=== PATIENT | female | born 1940 | race Caucasian/White ===

== ENCOUNTER 2024-01-13 09:48 | Emergency (ER) | payer OTHER, SELFPAY ==
[2024-01-13 10:01] VITALS: BP 138/72
--- NOTE | 2024-01-13 11:16 | ED.GENMED ---
History of Present Illness
<Cecelia Schaefer PA-C - Last Filed: 01/13/24 15:26>
General
Chief Complaint: Skin Problem
Source: patient and records
Exam Limitations: none
Time Seen by Provider: 01/13/24 11:02
Nursing documentation reviewed up to this point in time: agreed with
Travel History
Have you had any contact with someone who has COVID-19?: No
Do you have any symptoms of coronavirus? Fever > 100 degrees, chills, cough, shortness of breath, sore throat, loss of taste or smell, muscle aches, or headache?: No
History of Present Illness
History of Present Illness:
83-year-old female with a past medical history of CHF, COPD, A-fib on warfarin, CAD presenting to the emergency department today with concerns of swelling, pain, and warmth in her right leg. Patient states that she started to have problems with
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 Patient states that over the past few years it
started to get red on the right, and over the past few days, it became warm and painful. Patient is not a diabetic. Patient denies any fevers or chills. Patient denies any nausea vomiting, abdominal pain, chest pain. Patient was seen by her
primary care provider who sent her to the emergency department to rule out blood clot in her leg.
Past History
<Cecelia Schaefer PA-C - Last Filed: 01/13/24 15:26>
Past History
ED Past Medical History: CAD, Cancer (Breast cancer, left ), CHF, HTN, Hypercholesterolemia, Valvular disease (Aortic stenosis ) and Psychiatric
ED Past Surgical History: Cholecystectomy and Other (Lumpectomy left breast with adjuvent XRT, patient has also had a CABG with aortic replacement)
Social History
Tobacco: Former smoker
Alcohol: None
Personal:
Living: with family
Employment: Retired
Family History
Family History: Other (nonsig)
Review of Systems
<Cecelia Schaefer PA-C - Last Filed: 01/13/24 15:26>
Review of Systems
All Other Systems: ROS reviewed and negative except as documented in HPI and ROS
Phy Exam
<Cecelia Schaefer PA-C - Last Filed: 01/13/24 15:26>
Physical Exam
Physical Exam:
General: Patient is well appearing and in no acute distress; non-toxic
Skin: There is circumferential redness and brawny discoloration on the right calf. Right calf is hot to the touch.
Head: Normocephalic, atraumatic
Eyes: Sclera non-icteric. EOMs intact.
Cardiac: Regular rate
Peripheral Vascular: Bilateral lower extremity pitting edema. See skin exam above, right sided circumferential redness of right discoloration of the right calf.
Pulm: Normal respiratory effort
Abdomen: No abdominal tenderness
Musculoskeletal: Tenderness to palpation of the right lower extremity. No tenderness to palpation of the left lower extremity.
Neuro: CN II-XII intact, no focal neurologic deficits.
Psychiatric: Appropriate mood and affect.
Course
<Cecelia Schaefer PA-C - Last Filed: 01/13/24 15:26>
Orders/Labs/Results
Orders:
Orders
01/13/24 11:18
US Periph Venous LOWER Ext RT Urgent
Comment:
Reason For Exam: right calf redess, pain, and swelling
01/13/24 12:27
Complete Blood Count/With Diff Urgent
Comprehensive Metabolic Panel Urgent
01/13/24 12:33
Case Management Consult ONCE
Case Management Consult: VN/Home Care
01/13/24 12:35
Case Management Consult ONCE
Case Management Consult: VN/Home Care
01/13/24 13:26
Cephalexin Monohydrate [Keflex] 500 mg PO NOW STA
Abnormal Lab Results
01/13/24
12:27
Alkaline Phosphatase 132 H U/L
(38126)
01/13/24 12:27
01/13/24 12:27
Vital Signs
Initial and Last Documented VS:
Initial Vital Signs
Temp Pulse Resp BP Pulse Ox
98.1 F 73 20 138/72 95
01/13/24 10:01 01/13/24 10:01 01/13/24 10:01 01/13/24 10:01 01/13/24 10:01
Last Documented Vital Signs
Temp Pulse Resp BP Pulse Ox
98.1 F 73 20 138/72 95
01/13/24 10:01 01/13/24 10:01 01/13/24 10:01 01/13/24 10:01 01/13/24 10:01
<Adán Lezama MD - Last Filed: 01/13/24 12:42>
Orders/Labs/Results
Orders:
Orders
01/13/24 11:18
US Periph Venous LOWER Ext RT Urgent
Comment:
Reason For Exam: right calf redess, pain, and swelling
01/13/24 12:27
Complete Blood Count/With Diff Urgent
Comprehensive Metabolic Panel Urgent
01/13/24 12:33
Case Management Consult ONCE
Case Management Consult: VN/Home Care
01/13/24 12:35
Case Management Consult ONCE
Case Management Consult: VN/Home Care
01/13/24 13:26
Cephalexin Monohydrate [Keflex] 500 mg PO NOW STA
Abnormal Lab Results
01/13/24
12:27
Alkaline Phosphatase 132 H U/L
(38126)
01/13/24 12:27
01/13/24 12:27
Vital Signs
Initial and Last Documented VS:
Initial Vital Signs
Temp Pulse Resp BP Pulse Ox
98.1 F 73 20 138/72 95
01/13/24 10:01 01/13/24 10:01 01/13/24 10:01 01/13/24 10:01 01/13/24 10:01
Last Documented Vital Signs
Temp Pulse Resp BP Pulse Ox
98.1 F 73 20 138/72 95
01/13/24 10:01 01/13/24 10:01 01/13/24 10:01 01/13/24 10:01 01/13/24 10:01
<Cecelia Schaefer PA-C - Last Filed: 01/13/24 15:26>
MDM/Problems Addressed
Differential Diagnosis Includes:
Differentials include cellulitis, chronic venous insufficiency, DVT, erysipelas, CHF, osteomyelitis, arterial insufficiency
MDM/Problems Addressed:
right lower extremity pain, swelling, erythema

obtain CBC, CMP, and right lower extremity peripheral ultrasound,
Chronic conditions affecting care:
COPD, aortic stenosis status post TAVR, hypertension, hyperlipidemia, CHF
Acute Exacerbation and/or Progression of Chronic Illness:
COPD, aortic stenosis status post TAVR, hypertension, hyperlipidemia, CHF
<Cecelia Schaefer PA-C - Last Filed: 01/13/24 15:26>
*Pulse Oximetry
Patient hypoxic: no
*Critical Care Note
Total Time (30-74mins, 75-104mins- exclusive of procedures): Not Applicable
Data Reviewed
Review of Other/Old Records Reveals: Records (reviewed previous ER physician documentation from 09/21/2022, 08/11/22) and Discharge Summary (reviewed discharge summary from08/13/22, 04/14/2014)
Source: patient and records
<Cecelia Schaefer PA-C - Last Filed: 01/13/24 15:26>
Patient Management
Escalation/DeEscalation of care consider admission/obs:
83-year-old female with a past medical history of CHF, COPD, A-fib on warfarin, CAD presenting to the emergency department today with concerns of swelling, pain, and warmth in her right leg. Patient was seen by her primary care provider today who
recommended emergency department evaluation to rule out DVT. On physical exam, she has right sided erythema and passenger train braker her right calf. Her vitals are stable, she is afebrile. Ultrasound reveals no evidence for DVT in the right lower extremity
and the AVM in the right groin is not changed. Considering patient significant comorbidities and physical examination consistent with cellulitis, we will send patient with course of antibiotics. I also think her chronic venous disease in her AVM
is certainly contributing to this, and she will need follow-up for further management. We discussed swelling prevention in the future as infection resolves, suggested compression leggins, and we discussed home nursing care. Patient stable for
discharge, aware of return precautions.
ED Attending Note
<Cecelia Schaefer PA-C - Last Filed: 01/13/24 15:26>
-
Portions of this chart may have been created with voice recognition software.� Occasional wrong word or��sound alike� substitutions may have occurred due to the inherent limitations of voice recognition software.
<Adán Lezama MD - Last Filed: 01/13/24 12:42>
ED Attending Note
Patient seen and examined by attending physician: Yes
ED Attending Note:
HPI: 83-year-old female with extensive medical history as above presents for evaluation of right leg swelling and pain, redness. Patient says that she has had 4 years of swelling in her leg�she apparently had a valve replacement in 2009 and has a
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 She feels that is getting worse particular over the past month or 2. She says she is starting to notice redness and increasing pain in the right lower leg.
Today saw her primary doctor who sent her in for assessment for possible DVT or infection. She has not had any fevers or chills. She has not had any trauma to the leg. She has not had any significant chest pain or shortness of breath.
ROS: Positive for redness, swelling, pain right lower leg; negative for chest pain, shortness of breath, fevers, chills
Physical exam:
General: Awake, alert, oriented x3; no acute distress
Head: Normocephalic, atraumatic
Eyes: Conjunctiva normal
Throat: Airway intact, handling secretions
Neck: Trachea midline, no JVD
Lungs: Clear to auscultation bilaterally, no wheezing, rales, rhonchi
Heart: Regular rate and rhythm, no murmurs, gallops, or rubs
Neuro: Cranial nerves grossly intact, speech fluid; ambulatory with walker
Skin/extremity: Patient has area of erythema, warmth, tenderness right anterior lower leg but no wounds noted; she has edema +2 right lower extremity, trace edema left lower extremity; she has good range of motion right hip and knee and is able to
bear weight right lower extremity; she has good pulses in her right lower extremity
Differential diagnosis: Cellulitis, DVT, chronic venous stasis changes/lymphedema
Medical decision makin-year-old female presents with increasing swelling, pain, redness of the right lower leg. Vital signs normal. Exam as above. Sent for a right lower extremity ultrasound which was negative for DVT. Basic labs sent and
are pending. Suspect likely acute cellulitis. Will plan to treat with antibiotic; reasonable to trial oral antibiotics as an outpatient, she has well-established relationship with PCP and will follow-up. She feels comfortable this plan. We did
speak with case management to help arrange for visiting nurse/home care as patient lives home alone.
Chronic conditions affecting care: Obesity, heart disease
Acute exacerbation or progression of chronic illness: N/A
History source: Patient
Data reviewed: Prior visits, prior labs
Medications/testing considered: N/A
Social determinants of health: Lives alone
Discussion with other providers: Case management
Discharge Plan
Departure
Patient Disposition: Home (Routine Discharge)
Date of Disposition: 01/13/24
Time of Disposition: 13:20
Patient with high blood pressure during this ER visit?: Yes
Condition: Good
Discharge Problem:
Cellulitis
Instructions: Cellulitis (Skin Infection), Adult (DC), BLOOD PRESSURE
Prescriptions:
New
cephalexin 500 mg capsule
500 mg PO QID 5 Days Qty: 20 0RF
No Action
lorazepam 1 MG tablet
1 mg PO HSPRN PRN (Reason: sleep)
omeprazole magnesium [Prilosec OTC] 20 MG tablet,delayed release (DR/EC)
20 mg PO DAILY
paroxetine HCl [Paxil] 40 MG tablet
40 mg PO HS
amlodipine 5 mg Tablet
5 mg PO BID
ezetimibe 10 mg Tablet
10 mg PO DAILY
lutein 20 mg Capsule
20 mg PO DAILY
apple cider vinegar 300 mg Tablet
300 mg PO DAILY
Repatha SureClick 140 mg/mL Pen Injector
140 mg SC Q2W
furosemide 40 mg Tablet
40 mg PO BID
warfarin 2.5 mg Tablet
2 mg PO QPM
acetaminophen 650 mg Tablet Extended Release
1,300 mg PO BID
cyanocobalamin (vitamin B-12) 1,000 mcg Tablet, Sublingual
1,000 mcg SUBLINGUAL DAILY
rosuvastatin 5 mg Tablet
5 mg PO MOWEFR
cholecalciferol (vitamin D3) 125 mcg (5,000 unit) Tablet
125 mcg PO DAILY
PreserVision AREDS 2,148 mcg-113 mg-45 mg-17.4mg Tablet
1 tab PO DAILY
potassium chloride 20 mEq Tablet Extended Release
20 meq PO DAILY
carvedilol 12.5 mg Tablet
12.5 mg PO BID 30 Days Qty: 60 0RF
Centrum Silver Tablet
1 tab PO DAILY
turmeric root-jabari root ext 150-25 mg Tablet,Chewable
1 tab PO DAILY
Zahl Cinnamon
6,000 mg PO DAILY
mupirocin 2 % ointment
1 applic intranasal BID Qty: 1 0RF
Referrals:
Christina Craft MD [Family Provider] -
Activity Restrictions/Additional Instructions:
We have sent Cephalexin to your pharmacy. Please take one tablet 4 times daily for 5 days.
Please follow up with your primary care provider to ensure the resolution of your infection.
Please return to the emergency department should you experience fevers or chills, nausea or vomiting, abdominal pain, chest pain, shortness of breath, or other signs or symptoms concerning to you.
Interventions
Interventions:
*General Assessment Last Done: 01/13/24 13:57
*Neglect/Abuse Screening Last Done: 01/13/24 13:57
*ED COVID-19 Vaccine History Last Done: 01/13/24 10:01
*Nursing Disposition Last Done: 01/13/24 13:57
ED-Skin Assessment Last Done: 01/13/24 12:30
Discharge Date and Time
Discharge Date/Time: 01/13/24 13:58
Print Language: TELUGU
[2024-01-13 12:36] LABS: % Basophils 0.5 % (0-2); % Eosinophils 0.9 % (0-6); % Immature Granulocytes 0.2 % (0-0.5); % Lymphocytes 37.5 % (20.5-51.1); % Monocytes 7.6 % (1.7-9.3); % Neutrophils 53.3 % (42.2-75.2); Absolute Eosinophils 0.1 10^3/uL (0-0.7); Absolute Lymphocytes 2.5 10^3/uL (1.2-3.4); Absolute Monocytes 0.5 10^3/uL (0.1-0.6); Absolute Neutrophils 3.5 10^3/uL (1.4-6.5); Hematocrit 40.3 % (37.0-47.0); Hemoglobin 13.8 g/dL (12.0-16.0); Mean Corp Hgb Conc. 34.2 g/dL (33.0-37.0); Mean Corpuscular Hgb 30.9 pg (27.0-31.0); Mean Corpuscular Volume 90.4 fL (81.0-99.0); Mean Platelet Volume 10.4 fL (7.4-10.4); Nucleated Red Blood Cells % 0 %; Platelet Count 173 10^3/uL (130-400); Red Blood Cell Count 4.46 10^6/uL (4.20-5.40); Red Cell Dist. Width 13.1 % (11.5-14.5); White Blood Cell Count 6.6 10^3/uL (4.8-10.8)
--- NOTE | 2024-01-13 12:40 | CM ---
Cm spoke with patient. Patient was pleasant during IA. Patient lives independently at [facility]. Patient is agreeable to [facility]. Referral sent to [facility] holistic health practitioner via TT.
KWAN updated attending ED MD
[2024-01-13 13:11] LABS: ALT (SGPT) 30 U/L (0-35); AST (SGOT) 32 U/L (14-36); Albumin 4.2 g/dl (3.5-5.0); Alkaline Phosphatase 132 U/L (38-126); Blood Urea Nitrogen 16 mg/dl (7-17); Calcium 9.4 mg/dl (8.4-10.2); Carbon Dioxide 27 mmol/L (22-30); Chloride 106 mmol/L (98-107); Glucose 98 mg/dl (70-99); Potassium 3.7 mmol/L (3.5-5.1); Sodium 137 mmol/L (135-145); Total Protein 7.1 g/dl (6.3-8.2); eGFR > 60.00
[2024-01-13] MEDS: KEFLEX 500 MG PO (13:34)
--- NOTE | 2024-01-13 14:58 | VNURNOTE ---
Home Health Liaison spoke with patient at 1500 to discuss [facility] nurse/therapy, visits, schedule and homebound status.
Patient is asking for an aide daily to assist with personal care and getting dressed.
Liaison explained that [facility] is not that type of service but usually skilled visits at home 2-3 x per week to assess and teach medical management.
Patient is declining [facility]. Patient is aware that if she changes her mind she can contact her PCP to have [facility] set up.
No [facility] referral completed in [facility] at this time.
== END 2024-01-13 13:58 | disposition home or self-care (01) ==
LOC: EMR 09:48
PROVIDERS: Physician Assistant; EMERGENCY PHYSICIAN Emergency Medicine; FAMILY PHYSICIAN Emergency Medicine
DX: L03.115 Cellulitis of right lower limb (principal); I11.0 Hypertensive heart disease with heart failure; I35.0 Nonrheumatic aortic (valve) stenosis; I25.10 Atherosclerotic heart disease of native coronary artery without angina pectoris; Z87.891 Personal history of nicotine dependence; I48.91 Unspecified atrial fibrillation
CPT/HCPCS: 99284; 80053; 85025; 93971

== ENCOUNTER → 2024-09-12 12:08 | Outpatient (REF) | payer OTHER, SELFPAY ==
[2024-09-12 19:17] LABS: % Basophils 0.5 % (0-2); % Eosinophils 1.2 % (0-6); % Immature Granulocytes 0.1 % (0-0.5); % Lymphocytes 32.8 % (20.5-51.1); % Monocytes 8.2 % (1.7-9.3); % Neutrophils 57.2 % (42.2-75.2); Absolute Eosinophils 0.1 10^3/uL (0-0.7); Absolute Lymphocytes 2.5 10^3/uL (1.2-3.4); Absolute Monocytes 0.6 10^3/uL (0.1-0.6); Absolute Neutrophils 4.3 10^3/uL (1.4-6.5); Hematocrit 43.4 % (37.0-47.0); Hemoglobin 13.6 g/dL (12.0-16.0); Mean Corp Hgb Conc. 31.3 g/dL (33.0-37.0); Mean Corpuscular Hgb 31.3 pg (27.0-31.0); Mean Platelet Volume 11.6 fL (7.4-10.4); Nucleated Red Blood Cells % 0 %; Platelet Count 202 10^3/uL (130-400); Red Blood Cell Count 4.34 10^6/uL (4.20-5.40); Red Cell Dist. Width 13.2 % (11.5-14.5); White Blood Cell Count 7.6 10^3/uL (4.8-10.8)
[2024-09-12 19:26] LABS: ALT (SGPT) 24 U/L (0-35); AST (SGOT) 23 U/L (14-36); Albumin 4.8 g/dl (3.5-5.0); Alkaline Phosphatase 121 U/L (38-126); Blood Urea Nitrogen 16 mg/dl (7-17); Calcium 9.8 mg/dl (8.4-10.2); Carbon Dioxide 33 mmol/L (22-30); Chloride 103 mmol/L (98-107); Glucose 102 mg/dl (70-99); HDL Cholesterol 52 mg/dl; LDL Cholesterol, Calculated 157 mg/dl; Sodium 147 mmol/L (135-145); Total Cholesterol 244 mg/dl (50-199); Triglyceride 177 mg/dl (10-149); Very Low Density Lipoprotein 35 mg/dl (0-30); eGFR 56.25
[2024-09-12 19:31] LABS: Urine Albumin Trace (Neg - Trace); Urine Bilirubin Negative (Negative); Urine Character Clear (Clear); Urine Color Straw; Urine Glucose Negative (Negative); Urine Ketone Negative (Negative); Urine Leukocyte Negative (Negative); Urine Nitrite Negative (Negative); Urine Occult Blood Negative (Negative); Urine Urobilinogen Negative (Neg - 1+)
[2024-09-12 19:33] LABS: Potassium 4.4 mmol/L (3.5-5.1)
[2024-09-13 08:20] LABS: Glycohemoglobin (HgbA1c) 5.7 % (4.0-5.6)
== END ==
LOC: CLAB 12:08
PROVIDERS: ATTENDING PHYSICIAN Family Medicine
DX: N39.0 Urinary tract infection, site not specified (principal); K21.9 Gastro-esophageal reflux disease without esophagitis; I25.10 Atherosclerotic heart disease of native coronary artery without angina pectoris; R73.03 Prediabetes
CPT/HCPCS: 36415; 80053; 80061; 81003; 83036; 85025; 87077; 87086; 87186

== ENCOUNTER → 2024-11-14 10:03 | Outpatient (REF) | payer OTHER, SELFPAY | LOC: HWRCS 10:03 | PROVIDERS: ATTENDING PHYSICIAN Internal Medicine Interventional Cardiology; FAMILY PHYSICIAN Emergency Medicine | DX: I35.0 Nonrheumatic aortic (valve) stenosis (principal) | CPT/HCPCS: 93306 ==

== ENCOUNTER → 2025-06-26 16:26 | Outpatient (REF) | payer OTHER, SELFPAY ==
[2025-06-26 17:30] LABS: Hematocrit 41.1 % (37.0-47.0); Hemoglobin 13.2 g/dL (12.0-16.0); Mean Corp Hgb Conc. 32.1 g/dL (33.0-37.0); Mean Corpuscular Volume 97.2 fL (81.0-99.0); Nucleated Red Blood Cells % 0 %; Platelet Count 201 10^3/uL (130-400); Red Cell Dist. Width 13.1 % (11.5-14.5)
[2025-06-26 17:34] LABS: ALT (SGPT) 26 U/L (0-35); AST (SGOT) 23 U/L (14-36); Albumin 4.6 g/dl (3.5-5.0); Alkaline Phosphatase 117 U/L (38-126); Blood Urea Nitrogen 21 mg/dl (7-17); Calcium 9.7 mg/dl (8.4-10.2); Carbon Dioxide 29 mmol/L (22-30); Chloride 104 mmol/L (98-107); Glucose 114 mg/dl (70-99); HDL Cholesterol 55 mg/dl; LDL Cholesterol, Calculated 185 mg/dl; Potassium 3.9 mmol/L (3.5-5.1); Sodium 142 mmol/L (135-145); Total Protein 7.9 g/dl (6.3-8.2); Very Low Density Lipoprotein 31 mg/dl (0-30); eGFR 50.17
[2025-06-26 18:03] LABS: TSH 2.30 uIU/ml (0.47-4.68)
[2025-06-26 18:38] LABS: Folate > 20.0 ng/ml (2.76-20); Vitamin B12 529 pg/ml (239-931)
[2025-06-27 11:06] LABS: Glycohemoglobin (HgbA1c) 5.8 % (4.0-5.6)
== END ==
LOC: CLAB 16:26
PROVIDERS: ATTENDING PHYSICIAN Family Medicine
DX: E53.8 Deficiency of other specified B group vitamins (principal); R73.03 Prediabetes; I10 Essential (primary) hypertension; N18.30 Chronic kidney disease, stage 3 unspecified; E78.5 Hyperlipidemia, unspecified; E78.2 Mixed hyperlipidemia
CPT/HCPCS: 36415; 80053; 80061; 82607; 82746; 83036; 84443; 85025